=== PATIENT | male | born 1955 | race Caucasian/White ===

== ENCOUNTER 2017-10-13 01:16 | Inpatient (IN) | payer MEDICAID ==
[~2017-10-13] VITALS: Ht 180.3 cm; Wt 62.9 kg
[2017-10-13 02:03] LABS: Basophils # (auto) 0.1 uL; Basophils % (auto) 0.4 % (0.0-2.0); Eosinophils # (auto) 0 uL; Eosinophils % (auto) 0.2 % (0.0-7.0); Hematocrit 31.5 % (41.0-53.0); Hemoglobin 10.3 g/dL (13.5-17.5); Lymphocytes # (auto) 1.4 uL; Lymphocytes % (auto) 8.1 % (10.0-50.0); Mean Corpuscular Hgb Conc. 32.7 g/dL (32.0-36.0); Mean Corpuscular Volume 82.4 fL (80.0-100.0); Monocytes # (auto) 1.3 uL; Monocytes % (auto) 7.6 % (0.0-12.0); Neutrophils # (auto) 14.2 uL; Neutrophils % (auto) 83.7 % (37.0-80.0); Platelet Count (auto) 328 10^3/uL (140-450); Red Blood Cells 3.83 10^6/uL (4.5-5.90); Red Cell Distribution Width 14.9 % (11.8-14.3)
[2017-10-13] MEDS ORDERED: SODIUM CHLORIDE 0.9% 1,000 ML IVB ONE (02:03)
[2017-10-13 02:14] LABS: INR 1.18 (0.9-1.15); Partial Thromboplastin Time 31.4 sec (22.64-33.71); Prothrombin Time 12.9 sec (9.37-12.3)
[2017-10-13] MEDS ORDERED: VANCOMYCIN 1GM/250ML 250 ML IV ONE (02:15)
[2017-10-13] MEDS ORDERED: CLINDAMYCIN 900MG IV 50 ML IV ONE (02:15)
[2017-10-13 02:58] LABS: Alanine Aminotransferase 29 U/L (16-61); Albumin 1.6 g/dL (3.4-5.0); Alkaline Phosphatase 130 U/L (45-117); Anion Gap 9 (5-15); Aspartate Aminotransferase 39 U/L (15-37); BUN/Creatinine Ratio 17.2; Bilirubin, Total 0.4 mg/dL (0.2-1.0); Blood Urea Nitrogen 17 mg/dL (7-18); Calcium 7.8 mg/dL (8.5-10.1); Carbon Dioxide 24 mmol/L (21-32); Chloride 86 mmol/L (98-107); GFR African American 99 mL/min; GFR Non-African American 82 mL/min; Lactate Dehydrogenase 148 U/L (87-241); Potassium 4.6 mmol/L (3.5-5.1)
[2017-10-13 02:59] LABS: Blood Alcohol < 3.0 mg/dL (0-5)
[2017-10-13 03:00] LABS: Sodium 119 mmol/L (136-145)
[2017-10-13 03:02] LABS: Glucose 488 mg/dL (74-106)
[2017-10-13] MEDS ORDERED: InsuLIN REG 1unit/0.01ml Soln (100units/ml) IV ONE (03:15)
[2017-10-13] MEDS ORDERED: SODIUM CHLORIDE 0.9% 1,000 ML IV ONE ×2 (03:15→08:30)
[2017-10-13 03:27] LABS: Magnesium 1.9 mg/dL (1.6-2.6)
[2017-10-13 03:33] LABS: Lactic Acid w/Reflex 2.7 mmol/L (0.4-2.0)
[2017-10-13 03:48] LABS: CRP High Sensitivity 17.2 mg/dL (< 0.3)
[2017-10-13] MEDS ORDERED: PIPERACILLIN-TAZOB 3.375GM 100 ML IV ONE (06:00)
[2017-10-13] MEDS ORDERED: MORPHINE SULFATE 4 MG/ML SYR/VIAL IV ONE (06:45)
[2017-10-13 08:25] LABS: Urine Bacteria NONE SEEN /hpf (None Seen); Urine Blood 1+ /uL (Negative); Urine Specific Gravity 1.015 (1.001-1.035); Urine WBC 1 /hpf (0 - 3)
[2017-10-13] MEDS ORDERED: ONDANSETRON HCL 4 MG/2 ML VIAL IV PRN (08:30)
[2017-10-13] MEDS ORDERED: DEXTROSE (50%) 50ML SYRG IV PRN (08:30)
[2017-10-13] MEDS ORDERED: VANCOMYCIN PER PHARMACY 0 MG IV SCH (08:30)
[2017-10-13] MEDS: VANCOMYCIN 1GM/250ML 250 ML IV SCH ×2 (09:50→21:27)
[2017-10-13] MEDS: ACCU-CHEK COMFORT CURVE STRIP VI SCH ×3 (11:05→21:28)
[2017-10-13] MEDS: InsuLIN REG 1unit/0.01ml Soln (100units/ml) SC SCH ×3 (11:05→21:41)
[2017-10-13 11:37] LABS: BUN/Creatinine Ratio 18.5; Calcium 7.6 mg/dL (8.5-10.1); Potassium 4.4 mmol/L (3.5-5.1)
[2017-10-13] MEDS ORDERED: MORP1CAP9 PO (11:48)
[2017-10-13] MEDS ORDERED: INSLANTI SC (11:48)
[2017-10-13] MEDS ORDERED: HYDR-531 PO (11:48)
[2017-10-13] MEDS ORDERED: ALPR1TAB PO (11:48)
[2017-10-13] MEDS: PIPERACILLIN-TAZOB 3.375GM 100 ML IV SCH ×3 (12:13→23:37)
[2017-10-13] MEDS: MORPHINE SULFATE 4 MG/ML SYR/VIAL IV PRN ×2 (12:14→21:42)
[2017-10-13 13:00] VITALS: BP 124/75
[2017-10-13 17:00] VITALS: BP 120/66
[2017-10-13 22:08] VITALS: BP 122/68
[2017-10-14] MEDS: PIPERACILLIN-TAZOB 3.375GM 100 ML IV SCH ×4 (05:32→23:53)
[2017-10-14 05:33] VITALS: BP 137/74
[2017-10-14] MEDS: InsuLIN REG 1unit/0.01ml Soln (100units/ml) SC SCH ×4 (06:19→21:56)
[2017-10-14] MEDS: ACCU-CHEK COMFORT CURVE STRIP VI SCH ×4 (06:19→21:56)
[2017-10-14] MEDS: MORPHINE SULFATE 4 MG/ML SYR/VIAL IV PRN ×3 (06:19→21:29)
[2017-10-14 08:58] VITALS: BP 116/54
[2017-10-14 10:42] LABS: Basophils # (auto) 0.1 uL; Eosinophils # (auto) 0.1 uL; Eosinophils % (auto) 0.7 % (0.0-7.0); Hemoglobin 9.6 g/dL (13.5-17.5); White Blood Cell 14.8 10^3/uL (4.4-10.8)
[2017-10-14 10:43] LABS: Basophils % (auto) 0.4 % (0.0-2.0); Lymphocytes # (auto) 1.2 uL; Lymphocytes % (auto) 8.3 % (10.0-50.0); Mean Corpuscular Hemoglobin 26.8 pg (28.0-32.0); Monocytes % (auto) 6.9 % (0.0-12.0); Neutrophils # (auto) 12.4 uL; Neutrophils % (auto) 83.7 % (37.0-80.0); Platelet Count (auto) 317 10^3/uL (140-450); Red Blood Cells 3.58 10^6/uL (4.5-5.90); Red Cell Distribution Width 14.9 % (11.8-14.3)
[2017-10-14 10:57] LABS: BUN/Creatinine Ratio 18.8; Calcium 7.4 mg/dL (8.5-10.1); Potassium 4.3 mmol/L (3.5-5.1)
[2017-10-14] MEDS: VANCOMYCIN 1GM/250ML 250 ML IV SCH ×2 (11:02→21:58)
[2017-10-14] MEDS: SODIUM CHLORIDE 0.9% 1,000 ML IV SCH ×2 (11:49→22:23)
[2017-10-14] MEDS: CLINDAMYCIN 300MG IV 50 ML IV SCH ×2 (13:33→21:29)
[2017-10-14] MEDS ORDERED: CLINDAMYCIN 600 MG/4 ML VL IM SCH (14:00)
[2017-10-14 14:21] VITALS: BP 130/57
[2017-10-14 16:28] VITALS: BP 148/67
[2017-10-14 22:00] VITALS: BP 142/85
[2017-10-15] MEDS: MORPHINE SULFATE 4 MG/ML SYR/VIAL IV PRN ×4 (02:26→20:49)
[2017-10-15] MEDS: CLINDAMYCIN 300MG IV 50 ML IV SCH ×3 (05:48→22:00)
[2017-10-15] MEDS: PIPERACILLIN-TAZOB 3.375GM 100 ML IV SCH ×3 (05:49→18:41)
[2017-10-15] MEDS: SODIUM CHLORIDE 0.9% 1,000 ML IV SCH ×2 (06:42→16:45)
[2017-10-15] MEDS: ACCU-CHEK COMFORT CURVE STRIP VI SCH ×4 (06:42→22:00)
[2017-10-15] MEDS: InsuLIN REG 1unit/0.01ml Soln (100units/ml) SC SCH ×4 (06:42→22:00)
[2017-10-15] MEDS: VANCOMYCIN 1GM/250ML 250 ML IV SCH ×2 (09:55→22:57)
[2017-10-15 11:48] LABS: Basophils # (auto) 0 uL; Basophils % (auto) 0.2 % (0.0-2.0); Eosinophils # (auto) 0.1 uL; Eosinophils % (auto) 0.6 % (0.0-7.0); Hemoglobin 10.4 g/dL (13.5-17.5); Lymphocytes # (auto) 1.4 uL; Lymphocytes % (auto) 9.6 % (10.0-50.0); Mean Corpuscular Hemoglobin 27.8 pg (28.0-32.0); Mean Corpuscular Hgb Conc. 32.4 g/dL (32.0-36.0); Mean Corpuscular Volume 85.9 fL (80.0-100.0); Monocytes # (auto) 1.3 uL; Monocytes % (auto) 8.4 % (0.0-12.0); Neutrophils # (auto) 12.2 uL; Neutrophils % (auto) 81.2 % (37.0-80.0); Nucleated Red Blood Cells % 0.1 %; Platelet Count (auto) 343 10^3/uL (140-450); Red Blood Cells 3.73 10^6/uL (4.5-5.90); Red Cell Distribution Width 15.4 % (11.8-14.3)
[2017-10-15 11:58] LABS: Albumin 1.2 g/dL (3.4-5.0); BUN/Creatinine Ratio 12.2; Calcium 7.5 mg/dL (8.5-10.1); Potassium 4.2 mmol/L (3.5-5.1)
[2017-10-15 12:01] LABS: Bilirubin, Total 0.4 mg/dL (0.2-1.0); Total Protein 7.2 g/dL (6.4-8.2)
[2017-10-15] MEDS: Boost Glucose Control 8 Ounces PO SCH ×2 (12:33→18:41)
[2017-10-15 14:28] VITALS: BP 128/83
[2017-10-15] MEDS ORDERED: IOHEXOL 350 MG/ML 100ML IJ ONE (14:58)
[2017-10-15 17:04] VITALS: BP 127/80
[2017-10-15] MEDS: PRO-STAT 64 30ML PO SCH (18:41)
[2017-10-15 20:00] VITALS: BP 126/72
[2017-10-15 22:00] VITALS: BP 126/72
[2017-10-16] MEDS: SODIUM CHLORIDE 0.9% 1,000 ML IV SCH ×3 (03:12→21:02)
[2017-10-16] MEDS: MORPHINE SULFATE 4 MG/ML SYR/VIAL IV PRN ×5 (03:24→21:03)
[2017-10-16 05:00] VITALS: BP 151/69
[2017-10-16] MEDS: PIPERACILLIN-TAZOB 3.375GM 100 ML IV SCH ×3 (06:00→11:39)
[2017-10-16] MEDS: CLINDAMYCIN 300MG IV 50 ML IV SCH ×3 (06:17→21:02)
[2017-10-16] MEDS: InsuLIN REG 1unit/0.01ml Soln (100units/ml) SC SCH ×4 (06:32→21:03)
[2017-10-16] MEDS: ACCU-CHEK COMFORT CURVE STRIP VI SCH ×4 (06:32→21:02)
[2017-10-16] MEDS: Boost Glucose Control 8 Ounces PO SCH ×3 (08:00→18:00)
[2017-10-16] MEDS: PRO-STAT 64 30ML PO SCH ×2 (08:00→18:00)
[2017-10-16 08:23] VITALS: BP 135/76
[2017-10-16] MEDS: VANCOMYCIN 1GM/250ML 250 ML IV SCH ×2 (10:08→21:01)
[2017-10-16 12:34] LABS: Basophils # (auto) 0 uL; Basophils % (auto) 0.2 % (0.0-2.0); Eosinophils # (auto) 0.1 uL; Eosinophils % (auto) 0.8 % (0.0-7.0); Hematocrit 29.3 % (41.0-53.0); Hemoglobin 9.7 g/dL (13.5-17.5); Lymphocytes # (auto) 1.8 uL; Lymphocytes % (auto) 13.6 % (10.0-50.0); Mean Corpuscular Hemoglobin 27.1 pg (28.0-32.0); Mean Corpuscular Hgb Conc. 33.1 g/dL (32.0-36.0); Mean Corpuscular Volume 81.9 fL (80.0-100.0); Monocytes # (auto) 1.2 uL; Monocytes % (auto) 9.3 % (0.0-12.0); Neutrophils # (auto) 9.9 uL; Neutrophils % (auto) 76.1 % (37.0-80.0); Platelet Count (auto) 391 10^3/uL (140-450); Red Blood Cells 3.58 10^6/uL (4.5-5.90); Red Cell Distribution Width 15.3 % (11.8-14.3)
[2017-10-16 12:59] LABS: Albumin 1.3 g/dL (3.4-5.0); BUN/Creatinine Ratio 14.7; Bilirubin, Total 0.3 mg/dL (0.2-1.0); Calcium 7.7 mg/dL (8.5-10.1); Potassium 4.4 mmol/L (3.5-5.1); Total Protein 7.6 g/dL (6.4-8.2)
[2017-10-16] MEDS ORDERED: LEVOFLOXACIN 500MG 100 ML IV ONE (13:30)
[2017-10-16] MEDS ORDERED: IOHEXOL 350 MG/ML 100ML IJ ONE ×2 (14:28→14:32)
[2017-10-16] MEDS: HYDROcodone-ACET 5/325MG TAB PO PRN (18:30)
[2017-10-16 22:00] VITALS: BP 121/69
[2017-10-17] MEDS: MORPHINE SULFATE 4 MG/ML SYR/VIAL IV PRN ×3 (04:02→22:11)
[2017-10-17 05:00] VITALS: BP 147/79
[2017-10-17] MEDS: CLINDAMYCIN 300MG IV 50 ML IV SCH ×3 (05:34→22:11)
[2017-10-17] MEDS: ACCU-CHEK COMFORT CURVE STRIP VI SCH ×4 (05:34→22:00)
[2017-10-17] MEDS: InsuLIN REG 1unit/0.01ml Soln (100units/ml) SC SCH ×4 (06:25→22:00)
[2017-10-17 07:10] LABS: Basophils # (auto) 0 uL; Basophils % (auto) 0.4 % (0.0-2.0); Eosinophils # (auto) 0.1 uL; Eosinophils % (auto) 0.7 % (0.0-7.0); Hematocrit 28.8 % (41.0-53.0); Hemoglobin 9.8 g/dL (13.5-17.5); Lymphocytes # (auto) 1.4 uL; Lymphocytes % (auto) 13.7 % (10.0-50.0); Mean Corpuscular Hemoglobin 27.7 pg (28.0-32.0); Mean Corpuscular Volume 81.6 fL (80.0-100.0); Monocytes # (auto) 1.1 uL; Monocytes % (auto) 10.9 % (0.0-12.0); Neutrophils # (auto) 7.8 uL; Neutrophils % (auto) 74.3 % (37.0-80.0); Nucleated Red Blood Cells % 0.1 %; Platelet Count (auto) 421 10^3/uL (140-450); Red Blood Cells 3.53 10^6/uL (4.5-5.90); Red Cell Distribution Width 15.6 % (11.8-14.3); White Blood Cell 10.5 10^3/uL (4.4-10.8)
[2017-10-17 07:11] LABS: Albumin 1.3 g/dL (3.4-5.0); Bilirubin, Total 0.3 mg/dL (0.2-1.0); Potassium 4.5 mmol/L (3.5-5.1); Total Protein 7.6 g/dL (6.4-8.2)
[2017-10-17] MEDS ORDERED: IOHEXOL 350 MG/ML 100ML IJ ONE ×2 (07:23→11:41)
[2017-10-17] MEDS ORDERED: LIDOCAINE 2%HCL (LOCAL ANESTH.) INJ 20ML MDV ONE (07:23)
[2017-10-17] MEDS: PRO-STAT 64 30ML PO SCH ×2 (08:00→18:00)
[2017-10-17] MEDS: Boost Glucose Control 8 Ounces PO SCH ×3 (08:00→18:00)
[2017-10-17] MEDS ORDERED: ANGIOMAX 250 MG VIAL IV ONE (11:19)
[2017-10-17] MEDS ORDERED: fentaNYL CITRATE 100 MCG/2 ML VL ONE (11:20)
[2017-10-17] MEDS ORDERED: SODIUM CHL 0.9% 50 ML ONE (11:20)
[2017-10-17] MEDS ORDERED: MIDAZOLAM HCL 1MG/1ML-2 ML VIAL ONE (11:20)
[2017-10-17] MEDS: SODIUM CHLORIDE 0.9% 1,000 ML IV SCH ×2 (15:07→18:45)
[2017-10-17] MEDS ORDERED: VANCOMYCIN 1GM/250ML 250 ML IV SCH (15:30)
[2017-10-17] MEDS: VANCOMYCIN 1GM/250ML 250 ML IV SCH (15:31)
[2017-10-17] MEDS: LEVOFLOXACIN 500MG 100 ML IV SCH (16:18)
[2017-10-17 16:33] VITALS: BP 129/77
[2017-10-17] MEDS: HYDROcodone-ACET 5/325MG TAB PO PRN (20:22)
[2017-10-17] MEDS: ACETAMINOPHEN 500 MG TAB PO PRN (20:22)
[2017-10-17 22:00] VITALS: BP 142/73
[2017-10-18] MEDS: MORPHINE SULFATE 4 MG/ML SYR/VIAL IV PRN ×3 (01:53→20:14)
[2017-10-18] MEDS: VANCOMYCIN 1GM/250ML 250 ML IV SCH ×2 (04:08→16:04)
[2017-10-18] MEDS: ACETAMINOPHEN 500 MG TAB PO PRN ×2 (04:22→21:14)
[2017-10-18] MEDS: HYDROcodone-ACET 5/325MG TAB PO PRN ×3 (04:23→21:11)
[2017-10-18 05:46] VITALS: BP 134/74
[2017-10-18] MEDS: SODIUM CHLORIDE 0.9% 1,000 ML IV SCH ×2 (05:49→18:12)
[2017-10-18] MEDS: CLINDAMYCIN 300MG IV 50 ML IV SCH ×3 (06:12→21:10)
[2017-10-18 06:29] LABS: Basophils # (auto) 0 uL; Basophils % (auto) 0.3 % (0.0-2.0); Eosinophils # (auto) 0 uL; Eosinophils % (auto) 0.5 % (0.0-7.0); Hematocrit 26.6 % (41.0-53.0); Lymphocytes # (auto) 1.4 uL; Lymphocytes % (auto) 15.2 % (10.0-50.0); Mean Corpuscular Hemoglobin 27.7 pg (28.0-32.0); Mean Corpuscular Hgb Conc. 33.6 g/dL (32.0-36.0); Mean Corpuscular Volume 82.3 fL (80.0-100.0); Monocytes % (auto) 10.8 % (0.0-12.0); Neutrophils # (auto) 6.6 uL; Neutrophils % (auto) 73.2 % (37.0-80.0); Platelet Count (auto) 401 10^3/uL (140-450); Red Blood Cells 3.24 10^6/uL (4.5-5.90); Red Cell Distribution Width 15.3 % (11.8-14.3)
[2017-10-18] MEDS: InsuLIN REG 1unit/0.01ml Soln (100units/ml) SC SCH ×4 (06:31→20:27)
[2017-10-18] MEDS: ACCU-CHEK COMFORT CURVE STRIP VI SCH ×4 (06:31→20:27)
[2017-10-18 06:57] LABS: Albumin 1.3 g/dL (3.4-5.0); BUN/Creatinine Ratio 20.7; Bilirubin, Total 0.2 mg/dL (0.2-1.0); Calcium 7.5 mg/dL (8.5-10.1); Potassium 4.6 mmol/L (3.5-5.1); Total Protein 7.4 g/dL (6.4-8.2)
[2017-10-18] MEDS: PRO-STAT 64 30ML PO SCH ×2 (08:16→18:15)
[2017-10-18] MEDS: Boost Glucose Control 8 Ounces PO SCH ×3 (08:16→18:14)
[2017-10-18] MEDS ORDERED: InsuLIN REG 1unit/0.01ml Soln (100units/ml) IV ONE (08:45)
[2017-10-18 09:00] VITALS: BP 140/57
[2017-10-18] MEDS: ASPirin 81 mg TAB PO SCH ×2 (10:00→10:22)
[2017-10-18] MEDS: LEVOFLOXACIN 500MG 100 ML IV SCH (10:22)
[2017-10-18] MEDS ORDERED: MORPHINE SULFATE 4 MG/ML SYR/VIAL IV ONE (10:30)
[2017-10-18] MEDS ORDERED: DEXTROSE (50%) 50ML SYRG IV PRN (10:45)
[2017-10-18 13:00] VITALS: BP 142/51
[2017-10-18 17:19] VITALS: BP 137/70
[2017-10-18] MEDS: INSULIN LANTUS (GLARGINE) 1 /0.01ml (100units/ml) SC SCH (21:15)
[2017-10-18 22:55] VITALS: BP 150/83
[2017-10-19] MEDS: MORPHINE SULFATE 4 MG/ML SYR/VIAL IV PRN ×3 (00:14→10:05)
[2017-10-19] MEDS: SODIUM CHLORIDE 0.9% 1,000 ML IV SCH ×3 (00:45→20:45)
[2017-10-19] MEDS: VANCOMYCIN 1GM/250ML 250 ML IV SCH ×2 (03:29→16:09)
[2017-10-19] MEDS: HYDROcodone-ACET 5/325MG TAB PO PRN ×2 (03:34→20:14)
[2017-10-19] MEDS: ACETAMINOPHEN 500 MG TAB PO PRN ×2 (03:34→20:14)
[2017-10-19] MEDS: CLINDAMYCIN 300MG IV 50 ML IV SCH ×3 (05:39→21:56)
[2017-10-19 05:48] VITALS: BP 113/60
[2017-10-19 05:48] LABS: Basophils # (auto) 0.1 uL; Basophils % (auto) 0.6 % (0.0-2.0); Eosinophils # (auto) 0.1 uL; Eosinophils % (auto) 0.7 % (0.0-7.0); Hematocrit 25.5 % (41.0-53.0); Hemoglobin 8.5 g/dL (13.5-17.5); Lymphocytes # (auto) 1.9 uL; Lymphocytes % (auto) 15.7 % (10.0-50.0); Mean Corpuscular Hemoglobin 27.1 pg (28.0-32.0); Mean Corpuscular Hgb Conc. 33.4 g/dL (32.0-36.0); Mean Corpuscular Volume 81.3 fL (80.0-100.0); Monocytes # (auto) 1.4 uL; Monocytes % (auto) 11.3 % (0.0-12.0); Neutrophils # (auto) 8.8 uL; Neutrophils % (auto) 71.7 % (37.0-80.0); Platelet Count (auto) 407 10^3/uL (140-450); Red Blood Cells 3.14 10^6/uL (4.5-5.90); Red Cell Distribution Width 15.3 % (11.8-14.3); White Blood Cell 12.3 10^3/uL (4.4-10.8)
[2017-10-19 06:18] LABS: Calcium 7.8 mg/dL (8.5-10.1); Potassium 4.2 mmol/L (3.5-5.1)
[2017-10-19 06:20] LABS: BUN/Creatinine Ratio 22.7
[2017-10-19] MEDS: ACCU-CHEK COMFORT CURVE STRIP VI SCH ×4 (06:27→21:57)
[2017-10-19] MEDS: InsuLIN REG 1unit/0.01ml Soln (100units/ml) SC SCH ×4 (06:27→21:56)
[2017-10-19] MEDS: Boost Glucose Control 8 Ounces PO SCH ×3 (08:27→18:25)
[2017-10-19] MEDS: PRO-STAT 64 30ML PO SCH ×2 (08:27→18:25)
[2017-10-19 09:02] VITALS: BP 134/68
[2017-10-19] MEDS: ASPirin 81 mg TAB PO SCH (09:59)
[2017-10-19] MEDS: LEVOFLOXACIN 500MG 100 ML IV SCH (10:00)
[2017-10-19 13:00] VITALS: BP 132/68
[2017-10-19 15:19] LABS: INR 1.16 (0.9-1.15); Prothrombin Time 12.7 sec (9.37-12.3)
[2017-10-19] MEDS: MORPHINE SULFATE 8mg/ml INJ SDV IV PRN ×2 (15:45→21:55)
[2017-10-19] MEDS ORDERED: LIDOCAINE 1% (LOCAL ANESTH.) PF 5ml SDV ID ONE (16:30)
[2017-10-19] MEDS: SODIUM CHLOR 0.9% PF (SALINE LOCK) 10ML VIAL/SYR IV SCH (21:56)
[2017-10-19] MEDS: INSULIN LANTUS (GLARGINE) 1 /0.01ml (100units/ml) SC SCH (21:56)
[2017-10-19 22:00] VITALS: BP 141/79
[2017-10-20] MEDS: VANCOMYCIN 1GM/250ML 250 ML IV SCH ×2 (02:59→16:50)
[2017-10-20 05:12] VITALS: BP 143/79
[2017-10-20] MEDS: HYDROcodone-ACET 5/325MG TAB PO PRN ×2 (05:37→11:44)
[2017-10-20] MEDS: ACETAMINOPHEN 500 MG TAB PO PRN (05:38)
[2017-10-20] MEDS: CLINDAMYCIN 300MG IV 50 ML IV SCH ×3 (06:00→21:53)
[2017-10-20] MEDS: InsuLIN REG 1unit/0.01ml Soln (100units/ml) SC SCH ×4 (07:00→22:00)
[2017-10-20] MEDS: ACCU-CHEK COMFORT CURVE STRIP VI SCH ×4 (07:00→22:00)
[2017-10-20] MEDS: SODIUM CHLORIDE 0.9% 1,000 ML IV SCH ×2 (08:00→14:21)
[2017-10-20] MEDS: Boost Glucose Control 8 Ounces PO SCH ×3 (08:00→18:11)
[2017-10-20] MEDS: PRO-STAT 64 30ML PO SCH ×2 (08:00→18:11)
[2017-10-20 08:26] LABS: Basophils # (auto) 0 uL; Basophils % (auto) 0.4 % (0.0-2.0); Eosinophils # (auto) 0.1 uL; Eosinophils % (auto) 0.9 % (0.0-7.0); Hematocrit 24.9 % (41.0-53.0); Hemoglobin 8.4 g/dL (13.5-17.5); Lymphocytes % (auto) 16.9 % (10.0-50.0); Mean Corpuscular Hemoglobin 27.3 pg (28.0-32.0); Mean Corpuscular Hgb Conc. 33.6 g/dL (32.0-36.0); Mean Corpuscular Volume 81.4 fL (80.0-100.0); Monocytes # (auto) 1.2 uL; Neutrophils # (auto) 8.5 uL; Neutrophils % (auto) 71.8 % (37.0-80.0); Platelet Count (auto) 400 10^3/uL (140-450); Red Blood Cells 3.06 10^6/uL (4.5-5.90); Red Cell Distribution Width 15.7 % (11.8-14.3); White Blood Cell 11.8 10^3/uL (4.4-10.8)
[2017-10-20 08:28] LABS: Albumin 1.3 g/dL (3.4-5.0); Calcium 7.8 mg/dL (8.5-10.1); Potassium 3.9 mmol/L (3.5-5.1)
[2017-10-20 08:30] LABS: BUN/Creatinine Ratio 25.4
[2017-10-20 08:32] LABS: Bilirubin, Total 0.2 mg/dL (0.2-1.0); Total Protein 7.9 g/dL (6.4-8.2)
[2017-10-20] MEDS: MORPHINE SULFATE 8mg/ml INJ SDV IV PRN ×3 (08:59→21:35)
[2017-10-20 09:00] VITALS: BP 130/73
[2017-10-20] MEDS: LEVOFLOXACIN 500MG 100 ML IV SCH (10:45)
[2017-10-20] MEDS: SODIUM CHLOR 0.9% PF (SALINE LOCK) 10ML VIAL/SYR IV SCH ×2 (11:45→22:01)
[2017-10-20 13:00] VITALS: BP 129/78
[2017-10-20] MEDS: MULTIPLE VITAMIN TAB PO SCH (15:24)
[2017-10-20 16:45] VITALS: BP 132/77
[2017-10-20] MEDS: ASCORBIC ACID 500 MG TAB PO SCH (21:54)
[2017-10-20 22:00] VITALS: BP 150/79
[2017-10-20] MEDS: INSULIN LANTUS (GLARGINE) 1 /0.01ml (100units/ml) SC SCH (22:00)
[2017-10-21] MEDS: MORPHINE SULFATE 8mg/ml INJ SDV IV PRN ×5 (01:35→19:42)
[2017-10-21] MEDS: HYDROcodone-ACET 5/325MG TAB PO PRN ×3 (02:38→22:58)
[2017-10-21 02:52] LABS: Eosinophils # (auto) 0.1 uL; Eosinophils % (auto) 1.1 % (0.0-7.0); Hematocrit 25.1 % (41.0-53.0); Hemoglobin 8.4 g/dL (13.5-17.5); Lymphocytes # (auto) 2.4 uL; Mean Corpuscular Hemoglobin 27.4 pg (28.0-32.0); Mean Corpuscular Hgb Conc. 33.5 g/dL (32.0-36.0); Mean Corpuscular Volume 81.8 fL (80.0-100.0); Monocytes # (auto) 1.2 uL; Red Blood Cells 3.07 10^6/uL (4.5-5.90)
[2017-10-21 02:54] LABS: Basophils # (auto) 0 uL; Basophils % (auto) 0.4 % (0.0-2.0); Lymphocytes % (auto) 17.9 % (10.0-50.0); Monocytes % (auto) 8.7 % (0.0-12.0); Neutrophils # (auto) 9.7 uL; Neutrophils % (auto) 71.9 % (37.0-80.0); Platelet Count (auto) 402 10^3/uL (140-450); Red Cell Distribution Width 15.6 % (11.8-14.3); White Blood Cell 13.5 10^3/uL (4.4-10.8)
[2017-10-21 03:25] LABS: Albumin 1.4 g/dL (3.4-5.0); BUN/Creatinine Ratio 25.7; Calcium 7.9 mg/dL (8.5-10.1); Potassium 4.5 mmol/L (3.5-5.1)
[2017-10-21 03:27] LABS: Bilirubin, Total 0.2 mg/dL (0.2-1.0); Total Protein 8.1 g/dL (6.4-8.2)
[2017-10-21] MEDS: VANCOMYCIN 1GM/250ML 250 ML IV SCH ×2 (03:34→16:05)
[2017-10-21] MEDS: SODIUM CHLORIDE 0.9% 1,000 ML IV SCH ×3 (03:34→22:45)
[2017-10-21 05:00] VITALS: BP 135/63
[2017-10-21] MEDS: CLINDAMYCIN 300MG IV 50 ML IV SCH ×3 (06:16→21:52)
[2017-10-21] MEDS: InsuLIN REG 1unit/0.01ml Soln (100units/ml) SC SCH ×5 (06:39→22:00)
[2017-10-21] MEDS: ACCU-CHEK COMFORT CURVE STRIP VI SCH ×4 (06:39→21:53)
[2017-10-21 07:33] LABS: INR 1.14 (0.9-1.15); Partial Thromboplastin Time 32.3 sec (23.78-33.04); Prothrombin Time 12.1 sec (9.27-12.13)
[2017-10-21] MEDS: ASCORBIC ACID 500 MG TAB PO SCH ×2 (10:27→21:52)
[2017-10-21] MEDS: MULTIPLE VITAMIN TAB PO SCH (10:27)
[2017-10-21] MEDS: Boost Glucose Control 8 Ounces PO SCH ×3 (10:27→18:26)
[2017-10-21] MEDS: LEVOFLOXACIN 500MG 100 ML IV SCH (10:27)
[2017-10-21] MEDS: SODIUM CHLOR 0.9% PF (SALINE LOCK) 10ML VIAL/SYR IV SCH ×2 (10:27→21:52)
[2017-10-21] MEDS: PRO-STAT 64 30ML PO SCH ×2 (10:27→18:27)
[2017-10-21 13:00] VITALS: BP 132/68
[2017-10-21 16:24] VITALS: BP 132/73
[2017-10-21] MEDS: INSULIN LANTUS (GLARGINE) 1 /0.01ml (100units/ml) SC SCH (21:53)
[2017-10-21 23:34] VITALS: BP 126/69
[2017-10-22] MEDS: MORPHINE SULFATE 8mg/ml INJ SDV IV PRN ×2 (00:40→10:14)
[2017-10-22] MEDS: VANCOMYCIN 1GM/250ML 250 ML IV SCH ×2 (03:43→15:30)
[2017-10-22 05:40] VITALS: BP 135/77
[2017-10-22] MEDS: CLINDAMYCIN 300MG IV 50 ML IV SCH ×3 (05:59→22:09)
[2017-10-22] MEDS: ACCU-CHEK COMFORT CURVE STRIP VI SCH ×4 (06:21→22:11)
[2017-10-22] MEDS: InsuLIN REG 1unit/0.01ml Soln (100units/ml) SC SCH ×5 (06:50→22:10)
[2017-10-22 06:54] LABS: Basophils # (auto) 0.1 uL; Eosinophils # (auto) 0.1 uL; Hemoglobin 8.3 g/dL (13.5-17.5); Lymphocytes # (auto) 1.6 uL; Monocytes # (auto) 1.2 uL
[2017-10-22 06:58] LABS: Basophils % (auto) 0.5 % (0.0-2.0); Eosinophils % (auto) 0.9 % (0.0-7.0); Hematocrit 24.4 % (41.0-53.0); Mean Corpuscular Hemoglobin 27.8 pg (28.0-32.0); Mean Corpuscular Volume 81.6 fL (80.0-100.0); Monocytes % (auto) 10.9 % (0.0-12.0); Neutrophils # (auto) 7.7 uL; Neutrophils % (auto) 72.7 % (37.0-80.0); Platelet Count (auto) 349 10^3/uL (140-450); Red Cell Distribution Width 15.5 % (11.8-14.3); White Blood Cell 10.6 10^3/uL (4.4-10.8)
[2017-10-22 07:17] LABS: Albumin 1.4 g/dL (3.4-5.0); BUN/Creatinine Ratio 34.3; Bilirubin, Total 0.2 mg/dL (0.2-1.0); Calcium 7.9 mg/dL (8.5-10.1); Potassium 4.4 mmol/L (3.5-5.1)
[2017-10-22] MEDS: PRO-STAT 64 30ML PO SCH ×2 (07:56→18:00)
[2017-10-22] MEDS: Boost Glucose Control 8 Ounces PO SCH ×3 (07:56→18:00)
[2017-10-22] MEDS: SODIUM CHLORIDE 0.9% 1,000 ML IV SCH ×2 (08:45→18:04)
[2017-10-22] MEDS: MULTIPLE VITAMIN TAB PO SCH (10:00)
[2017-10-22] MEDS: ASCORBIC ACID 500 MG TAB PO SCH ×2 (10:00→22:09)
[2017-10-22] MEDS: LEVOFLOXACIN 500MG 100 ML IV SCH (11:01)
[2017-10-22] MEDS: SODIUM CHLOR 0.9% PF (SALINE LOCK) 10ML VIAL/SYR IV SCH ×2 (11:02→22:09)
[2017-10-22] MEDS ORDERED: MIDAZOLAM HCL 1MG/1ML-2 ML VIAL ONE ×2 (13:35→16:08)
[2017-10-22] MEDS ORDERED: METOCLOPRAMIDE HCL 5MG/ml INJ 2ml VIAL ONE (13:36)
[2017-10-22] MEDS ORDERED: ROCURONIUM 10MG/ML 10ML VIAL IV ONE (13:36)
[2017-10-22] MEDS ORDERED: ceFAZolin 1GM/100ML 100 ML IV ONE (13:37)
[2017-10-22] MEDS ORDERED: fentaNYL CITRATE 100 MCG/2 ML VL ONE ×2 (13:47→16:08)
[2017-10-22] MEDS ORDERED: LIDOCAINE HCL 2 %PF INJ 10ML AMP IJ ONE (13:55)
[2017-10-22] MEDS ORDERED: ONDANSETRON HCL 4 MG/2 ML VIAL IV ONE (14:00)
[2017-10-22] MEDS ORDERED: NALOXONE HCL 0.4 MG/ML VIAL IV PRN (14:00)
[2017-10-22] MEDS ORDERED: ACCU-CHEK COMFORT CURVE STRIP VI ONE (14:00)
[2017-10-22] MEDS ORDERED: MEPERIDINE HCL (50 MG/ML) 1 ML VIAL ONE (14:18)
[2017-10-22] MEDS ORDERED: KETOROLAC TROMETH 30 MG/ML 1ML VIAL ONE (14:18)
[2017-10-22] MEDS ORDERED: PHENYLEPHRINE HCL 10 MG/ML VL ONE (14:35)
[2017-10-22] MEDS ORDERED: NEOSTIGMINE 1 MG/ML INJ (10mg/10ML VIAL) ONE (14:47)
[2017-10-22] MEDS ORDERED: GLYCOPYRROLATE 0.2 MG/ML 1ML VIAL ONE (14:47)
[2017-10-22] MEDS: MORPHINE SULFATE 4 MG/ML SYR/VIAL IV PRN ×4 (15:11→15:56)
[2017-10-22] MEDS ORDERED: PROPOFOL 10 MG/ML 20 ML IV ONE (16:08)
[2017-10-22] MEDS ORDERED: ONDANSETRON HCL 4 MG/2 ML VIAL ONE (16:08)
[2017-10-22] MEDS ORDERED: SODIUM CHLORIDE LOCK 0 ML ONE (16:08)
[2017-10-22] MEDS: HYDROmorphone HCL 2 MG/ML VL IV PRN ×3 (17:03→22:09)
[2017-10-22] MEDS: HYDROcodone-ACET 5/325MG TAB PO PRN (18:04)
[2017-10-22 22:00] VITALS: BP 148/71
[2017-10-22] MEDS: INSULIN LANTUS (GLARGINE) 1 /0.01ml (100units/ml) SC SCH (22:10)
[2017-10-23] MEDS: HYDROmorphone HCL 2 MG/ML VL IV PRN ×6 (00:40→23:14)
[2017-10-23] MEDS: HYDROcodone-ACET 5/325MG TAB PO PRN ×4 (03:25→20:36)
[2017-10-23] MEDS: VANCOMYCIN 1GM/250ML 250 ML IV SCH ×2 (03:27→15:53)
[2017-10-23 05:00] VITALS: BP 140/73
[2017-10-23] MEDS: CLINDAMYCIN 300MG IV 50 ML IV SCH (06:11)
[2017-10-23] MEDS: ACCU-CHEK COMFORT CURVE STRIP VI SCH ×4 (06:11→20:35)
[2017-10-23 07:14] LABS: Basophils # (auto) 0 uL; Eosinophils # (auto) 0.1 uL; Hemoglobin 7.8 g/dL (13.5-17.5); Lymphocytes # (auto) 1.6 uL; Nucleated Red Blood Cells % 0.1 %
[2017-10-23 07:16] LABS: Basophils % (auto) 0.4 % (0.0-2.0); Eosinophils % (auto) 0.8 % (0.0-7.0); Hematocrit 22.7 % (41.0-53.0); Lymphocytes % (auto) 16.7 % (10.0-50.0); Mean Corpuscular Hemoglobin 28.2 pg (28.0-32.0); Mean Corpuscular Hgb Conc. 34.4 g/dL (32.0-36.0); Mean Corpuscular Volume 81.9 fL (80.0-100.0); Monocytes % (auto) 9.7 % (0.0-12.0); Neutrophils # (auto) 7.1 uL; Neutrophils % (auto) 72.4 % (37.0-80.0); Platelet Count (auto) 364 10^3/uL (140-450); Red Blood Cells 2.77 10^6/uL (4.5-5.90); Red Cell Distribution Width 15.8 % (11.8-14.3); White Blood Cell 9.8 10^3/uL (4.4-10.8)
[2017-10-23 07:37] LABS: Albumin 1.6 g/dL (3.4-5.0); BUN/Creatinine Ratio 31.4; Bilirubin, Total 0.2 mg/dL (0.2-1.0); Calcium 7.8 mg/dL (8.5-10.1); Potassium 4.4 mmol/L (3.5-5.1); Total Protein 8.6 g/dL (6.4-8.2)
[2017-10-23 08:00] VITALS: BP 130/69
[2017-10-23] MEDS: SODIUM CHLORIDE 0.9% 1,000 ML IV SCH ×2 (08:06→15:28)
[2017-10-23] MEDS: InsuLIN REG 1unit/0.01ml Soln (100units/ml) SC SCH ×4 (08:07→20:37)
[2017-10-23] MEDS: ASCORBIC ACID 500 MG TAB PO SCH ×2 (08:49→20:35)
[2017-10-23] MEDS: MULTIPLE VITAMIN TAB PO SCH (08:49)
[2017-10-23] MEDS: Boost Glucose Control 8 Ounces PO SCH ×3 (08:49→18:27)
[2017-10-23] MEDS: SODIUM CHLOR 0.9% PF (SALINE LOCK) 10ML VIAL/SYR IV SCH ×2 (08:49→20:35)
[2017-10-23] MEDS: LEVOFLOXACIN 500MG 100 ML IV SCH (08:49)
[2017-10-23] MEDS: PRO-STAT 64 30ML PO SCH ×2 (08:49→18:27)
[2017-10-23 12:36] VITALS: BP 126/73
[2017-10-23 17:40] VITALS: BP 146/87
[2017-10-23] MEDS: ACETAMINOPHEN 500 MG TAB PO PRN (20:36)
[2017-10-23] MEDS: INSULIN LANTUS (GLARGINE) 1 /0.01ml (100units/ml) SC SCH (20:37)
[2017-10-23 22:00] VITALS: BP 130/87
[2017-10-24] MEDS: SODIUM CHLORIDE 0.9% 1,000 ML IV SCH ×2 (01:14→10:48)
[2017-10-24] MEDS: ACETAMINOPHEN 500 MG TAB PO PRN (02:05)
[2017-10-24] MEDS: HYDROcodone-ACET 5/325MG TAB PO PRN ×2 (02:05→10:48)
[2017-10-24] MEDS: VANCOMYCIN 1GM/250ML 250 ML IV SCH ×2 (03:30→15:30)
[2017-10-24] MEDS: HYDROmorphone HCL 2 MG/ML VL IV PRN ×3 (04:42→12:55)
[2017-10-24 05:00] VITALS: BP 142/75
[2017-10-24] MEDS: ACCU-CHEK COMFORT CURVE STRIP VI SCH ×3 (05:45→17:27)
[2017-10-24] MEDS: InsuLIN REG 1unit/0.01ml Soln (100units/ml) SC SCH ×3 (05:45→17:38)
[2017-10-24 06:54] LABS: Basophils % (auto) 0.5 % (0.0-2.0); Eosinophils # (auto) 0.1 uL; Hemoglobin 7.5 g/dL (13.5-17.5); Mean Corpuscular Hgb Conc. 33.7 g/dL (32.0-36.0); Monocytes # (auto) 1.1 uL; White Blood Cell 9.8 10^3/uL (4.4-10.8)
[2017-10-24 06:57] LABS: Basophils # (auto) 0 uL; Hematocrit 22.3 % (41.0-53.0); Lymphocytes % (auto) 20.7 % (10.0-50.0); Mean Corpuscular Hemoglobin 27.6 pg (28.0-32.0); Mean Corpuscular Volume 81.9 fL (80.0-100.0); Monocytes % (auto) 11.2 % (0.0-12.0); Neutrophils # (auto) 6.5 uL; Neutrophils % (auto) 66.6 % (37.0-80.0); Nucleated Red Blood Cells % 0.2 %; Platelet Count (auto) 346 10^3/uL (140-450); Red Blood Cells 2.73 10^6/uL (4.5-5.90); Red Cell Distribution Width 15.7 % (11.8-14.3)
[2017-10-24 06:59] LABS: Potassium 4.7 mmol/L (3.5-5.1)
[2017-10-24 07:15] LABS: Albumin 1.6 g/dL (3.4-5.0); BUN/Creatinine Ratio 29.2; Bilirubin, Total 0.2 mg/dL (0.2-1.0); Total Protein 8.9 g/dL (6.4-8.2)
[2017-10-24 08:00] VITALS: BP 143/90
[2017-10-24] MEDS: PRO-STAT 64 30ML PO SCH (08:00)
[2017-10-24] MEDS: Boost Glucose Control 8 Ounces PO SCH ×2 (08:00→12:00)
[2017-10-24] MEDS: SODIUM CHLOR 0.9% PF (SALINE LOCK) 10ML VIAL/SYR IV SCH (10:00)
[2017-10-24] MEDS: LEVOFLOXACIN 500MG 100 ML IV SCH (10:30)
[2017-10-24] MEDS: ASCORBIC ACID 500 MG TAB PO SCH (10:47)
[2017-10-24] MEDS: MULTIPLE VITAMIN TAB PO SCH (10:48)
[2017-10-24 11:26] VITALS: BP 159/94
[2017-10-24 17:00] VITALS: BP 160/100
== END 2017-10-24 18:30 | disposition home health service (06) | DRG 710 ==
LOC: ER 01:22 → TELE 01:23 → TELE-WESTW 10:36
PROVIDERS: ADMIT Nurse Practitioner Family; ATTEND Internal Medicine
PROC: B41G1ZZ Fluoroscopy of Left Lower Extremity Arteries using Low Osmolar Contrast (ICD-10-PCS; principal; 2017-10-17)
PROC: 047R3ZZ Dilation of Right Posterior Tibial Artery, Percutaneous Approach (ICD-10-PCS; 2017-10-17)
PROC: B41F1ZZ Fluoroscopy of Right Lower Extremity Arteries using Low Osmolar Contrast (ICD-10-PCS; 2017-10-17)
PROC: 02H633Z Insertion of Infusion Device into Right Atrium, Percutaneous Approach (ICD-10-PCS; 2017-10-19)
PROC: 0Y6H0Z1 Detachment at Right Lower Leg, High, Open Approach (ICD-10-PCS; 2017-10-22)
DX: A41.9 Sepsis, unspecified organism (principal); E43 Unspecified severe protein-calorie malnutrition; A48.0 Gas gangrene; I11.0 Hypertensive heart disease with heart failure; E11.52 Type 2 diabetes mellitus with diabetic peripheral angiopathy with gangrene; L03.115 Cellulitis of right lower limb; E87.1 Hypo-osmolality and hyponatremia; E11.621 Type 2 diabetes mellitus with foot ulcer; E11.69 Type 2 diabetes mellitus with other specified complication; E11.65 Type 2 diabetes mellitus with hyperglycemia; M85.80 Other specified disorders of bone density and structure, unspecified site; E11.628 Type 2 diabetes mellitus with other skin complications; I70.201 Unspecified atherosclerosis of native arteries of extremities, right leg; Z89.439 Acquired absence of unspecified foot; M86.8X7 Other osteomyelitis, ankle and foot; Z86.73 Personal history of transient ischemic attack (TIA), and cerebral infarction without residual deficits; D64.9 Anemia, unspecified; F32.9 Major depressive disorder, single episode, unspecified; I25.10 Atherosclerotic heart disease of native coronary artery without angina pectoris; Z53.20 Procedure and treatment not carried out because of patient's decision for unspecified reasons; Z91.19 Patient's noncompliance with other medical treatment and regimen; F17.200 Nicotine dependence, unspecified, uncomplicated; Z68.1 Body mass index [BMI] 19.9 or less, adult
CPT/HCPCS: 36415; 36569; 36600; 71045; 73630; 73718; 75635; 80048; 80053; 80202; 80320; 81001; 82805; 82962; 83605; 83615; 83735; 83880; 84484; 85025; 85610; 85730; 86141; 86850; 86900; 86901; 87040; 87077; 87081; 87186; 87205; 93005; 93926; 96361; 96365; 96367; 96375; 99152; 99153; 99291; J0690; J1815; J1885; J1956; J2250; J2270; J2405; J2543; J2704; J3490

== ENCOUNTER 2017-11-08 10:20 | Emergency (ER) | payer MEDICAID ==
[~2017-11-08] VITALS: Ht 180.3 cm; Wt 65.8 kg
[~2017-11-08 10:20] MED LIST: ALPR1TAB PO; HYDR-531 PO; INSLANTI SC; MORP1CAP9 PO
[2017-11-08 10:38] VITALS: BP 128/72
== END 2017-11-08 11:34 | disposition home or self-care (01) ==
LOC: ER 10:22
DX: Z45.2 Encounter for adjustment and management of vascular access device (principal); J44.9 Chronic obstructive pulmonary disease, unspecified; E11.9 Type 2 diabetes mellitus without complications; E78.5 Hyperlipidemia, unspecified; I11.0 Hypertensive heart disease with heart failure; I50.9 Heart failure, unspecified; F17.210 Nicotine dependence, cigarettes, uncomplicated; Z79.899 Other long term (current) drug therapy